=== PATIENT | female | born 1975 | race Caucasian/White ===

== ENCOUNTER 2021-08-05 19:48 | Emergency (ER) | payer OTHER, SELFPAY ==
--- NOTE | 2021-08-05 19:53 | ED.ABDPAIN ---
HPI - Abdominal Pain General Chief Complaint: Abdominal Pain Stated Complaint: abd pain Time Seen by Provider: 08/05/21 20:02 Source: patient Mode of arrival: ambulatory Limitations: no limitations History of Present Illness HPI narrative: 46-year-old female presents with concern for abdominal pain. Reports she was on the toilet, bent over and felt a sudden sharp right upper quadrant abdominal pain that radiated to the epigastric area. She reports she then had a bowel movement to try to relieve the pain which did not work. She denies vomiting or nausea. Denies diarrhea or constipation. Reports several nights ago she had a similar pain of less intensity, that went away on its own. She reports the pain has since eased up but is still mild. She denies heartburn. She reports history of hiatal hernia and GERD. MD elicited complaint: abdominal pain Related Data Home Medications Medication Instructions Recorded Confirmed montelukast 10 mg PO DAILY 08/05/21 08/05/21 omeprazole 40 mg PO DAILY 08/05/21 08/05/21 Allergies Allergy/AdvReac Type Severity Reaction Status Date / Time clindamycin Allergy Intermediate rash Verified 08/05/21 20:01 doxycycline Allergy Intermediate rash Verified 08/05/21 20:01 Sulfa (Sulfonamide Allergy Mild Unknown Verified 08/05/21 20:01 Antibiotics) Review of Systems Review of Systems: CONSTITUTIONAL: Denies malaise, chills, sweats, or fever. CARDIOVASCULAR: Denies chest pain, palpitations, or edema. RESPIRATORY: Denies cough or dyspnea. GASTROINTESTINAL: Reports right upper quadrant abdominal pain. Denies nausea, vomiting, diarrhea GENITOURINARY: Denies dysuria or hematuria. MUSCULOSKELETAL: Denies myalgia. All systems reviewed & are unremarkable except as noted in HPI and below PMFSH Comments At time of signature, agree with nursing past medical, surgical, social and family history. There is no relevant family history pertinent to the presenting complaint Exam Narrative: GENERAL: Well-appearing, well-nourished, and in no acute distress. HEAD: Normocephalic EYES: PERRLA, sclera clear ENT: Nares clear. Mucous membranes moist. NECK: Supple. CHEST: No respiratory distress. Clear to auscultation. No bony deformities, no asymmetry. Speaks in full sentences. HEART: Regular rate and rhythm. No murmur heard. Normal peripheral pulses. ABDOMEN: Soft, nontender, nondistended, normal active bowel sounds, no palpable masses. SKIN: Warm, dry, no visible rash. NEURO: Alert and oriented x3. PSYCH: Normal mood and affect Course Course Emergency Course: Discussed limited diagnostic capability in the express care. Offered patient transfer to emergency department for further evaluation. Patient prefers to follow-up with her primary care doctor. Patient is felt appropriate for outpatient treatment. Patient is aware of diagnosis, understands and agrees to treatment plan. Anticipatory guidance given. Patient agrees to follow-up as directed and is aware of reasons to seek care at the emergency department. Portions of this record may have been created with voice recognition software Level of Care: Express Care Visit Vital Signs Vital signs: Reviewed. MDM - Abdominal Pain MDM Narrative Medical decision making narrative: No evidence of pancreatitis, AAA, cholangitis, mesenteric ischemia, small bowel obstruction, diverticulitis, colitis, appendicitis, or pelvic etiology such as ovarian/testicular torsion, TOA, or ectopic . Patient has no history of peptic ulcer, H. pylori, chronic aspirin NSAID or corticosteroid use, chronic alcohol use, no history of inflammatory bowel disease, no history of active abdominal infection or malignancy. Patient has no history of hernia or intra-abdominal surgeries, patient denies absence of flatus, constipation, melena, hematemesis. Patient denies post-prandial pain. No pain-out of proportion. Exam findings show no acute concerns or changes; patient is non-toxic appearin
[2021-08-05 19:55] VITALS: BP 140/74; PULSE 82; RESP 16; TEMP 36.2; O2SAT 99
== END 2021-08-05 20:15 | disposition home or self-care (01) ==
PROVIDERS: Emergency Provider Nurse Practitioner
DX: R10.11 Right upper quadrant pain (principal); K21.9 Gastro-esophageal reflux disease without esophagitis
CPT/HCPCS: 99211; G0463

== ENCOUNTER 2022-09-27 08:14 | Emergency (ER) | payer OTHER, SELFPAY ==
[2022-09-27 08:23] VITALS: BP 126/59; PULSE 93; RESP 16; TEMP 36.2; O2SAT 99
--- NOTE | 2022-09-27 08:40 | ED.URI ---
HPI - URI/Sore Throat General Chief Complaint: Upper Respiratory Infection Stated Complaint: Sore Throat Time Seen by Provider: 09/27/22 08:40 History of Present Illness HPI Narrative: 39-year-old female presented for complaint of sore throat and nasal congestion over the last 3 days. She states that the onset she started with what she thought was allergy symptoms including runny nose, sore throat, and headache. 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 She denies shortness of breath, wheezing, nausea, vomiting, diarrhea, fevers or chills. She is taking allergy medication. Related Data Home Medications Medication Instructions Recorded Confirmed montelukast 10 mg tablet 10 mg PO DAILY 08/05/21 09/27/22 omeprazole 40 mg capsule,delayed 40 mg PO DAILY 08/05/21 09/27/22 release Allergies Allergy/AdvReac Type Severity Reaction Status Date / Time clindamycin Allergy Intermediate rash Verified 08/05/21 20:01 doxycycline Allergy Intermediate rash Verified 08/05/21 20:01 Sulfa (Sulfonamide Allergy Mild Unknown Verified 08/05/21 20:01 Antibiotics) Review of Systems Review of Systems: CONSTITUTIONAL: Denies body aches, fever, chills, or sweats. EYES: Denies visual changes, redness, or discharge. ENT: Denies otalgia. CARDIOVASCULAR: Denies chest pain, palpitations, or edema. RESPIRATORY: Denies dyspnea. GASTROINTESTINAL: Denies abdominal pain, nausea, vomiting, or diarrhea. SKIN: Denies rash, itching, or wounds. MUSCULOSKELETAL: Denies back pain, joint pain, or myalgia. NEUROLOGIC: Denies headache [facility] Past Medical History Medical History (Updated 09/27/22 @ 09:09 by Amira Gorman, HUGO) No pertinent past medical history Exam Narrative: GENERAL: well-appearing, no acute distress. EYES: conjunctivae clear ENT: Mucous membranes moist. TMs pearly sanz with normal light reflex bilaterally; no tragal tenderness. Oropharynx erythematous without lesions. Tonsils enlarged 1+, left exuadate/stone No drooling, no hoarseness, no trismus, uvula midline. No tripod positioning, hot potato voice, or soft palate swelling. NECK: Supple. No lymphadenopathy CHEST: Clear to auscultation, breath sounds equal. No respiratory distress, speaks in full sentences. HEART: Regular rate and rhythm. No murmur heard. SKIN: Warm, dry, no rash. NEURO: Alert and oriented x3. Course Course Emergency Course: Patient is aware of diagnosis, understands and agrees to treatment plan. Anticipatory guidance given. Patient agrees to follow-up as directed and is aware of reasons to seek care at the emergency department. Portions of this record may have been created with voice recognition software Level of Care: Express Care Visit Vital Signs Vital signs: Vital Signs Temperature 97.1 F L 09/27/22 08:23 Pulse Rate 93 09/27/22 08:23 Respiratory Rate 16 09/27/22 08:23 Blood Pressure 126/59 L 09/27/22 08:23 Pulse Oximetry 99 09/27/22 08:23 Oxygen Delivery Room Air 09/27/22 08:23 Temperature 97.1 F L 09/27/22 08:23 Pulse Rate 93 09/27/22 08:23 Respiratory Rate 16 09/27/22 08:23 Blood Pressure 126/59 L 09/27/22 08:23 Pulse Oximetry 99 09/27/22 08:23 Oxygen Delivery Room Air 09/27/22 08:23 MDM - URI/Sore Throat MDM Narrative Medical decision making narrative: neg covid, flu and strep result reviewed with pt. Advise supportive treatments. Patient is appropriate for outpatient treatment and follow-up. Differential Diagnosis Differential diagnosis: Likely upper respiratory infection, viral infection and pharyngitis Discharge Plan Discharge Clinical Impression: Pharyngitis Patient Disposition: Home, Self-Care Condition: Stable Instructions: Antibiotic Form, Pharyngitis (ED) Additional Instructions: Rapid strep swab was negative today You will be notified in a few days if the culture comes back positive for strep,
== END 2022-09-27 09:20 | disposition home or self-care (01) ==
PROVIDERS: Emergency Provider Nurse Practitioner Family
DX: J02.9 Acute pharyngitis, unspecified (principal)
CPT/HCPCS: 87081; 87880; 99213; G0463